=== PATIENT | male | born 2000 | race Two or more races ===

== ENCOUNTER 2023-10-01 22:03 | Emergency (ER) | payer SELFPAY ==
[~2023-10-01] VITALS: Ht 172.7 cm; Wt 100.0 kg
[2023-10-02 01:45] VITALS: BP 132/73; PULSE 76; RESP 20; TEMP 98
[2023-10-02] MEDS ORDERED: IBUP-1456 PO (01:47)
[2023-10-02] MEDS ORDERED: CYCL-837 PO (01:47)
[2023-10-02 02:06] VITALS: O2SAT 98
[2023-10-02] MEDS: KETOROLAC TROMETH 60MG/2ML VIAL IM ONE (02:06)
== END 2023-10-02 02:30 | disposition home or self-care (01) ==
LOC: EDSEX 22:03 → ER 22:03
DX: S29.012A Strain of muscle and tendon of back wall of thorax, initial encounter (principal); F15.90 Other stimulant use, unspecified, uncomplicated; Z87.891 Personal history of nicotine dependence; Z88.0 Allergy status to penicillin; Z79.899 Other long term (current) drug therapy; X58.XXXA Exposure to other specified factors, initial encounter; Y93.89 Activity, other specified; Y92.89 Other specified places as the place of occurrence of the external cause; Y99.8 Other external cause status
CPT/HCPCS: J1885